=== PATIENT | female | born 1970 | race Caucasian/White ===

== ENCOUNTER 2024-01-02 07:14 | Day surgery (SDC) | payer OTHER, SELFPAY ==
[2023-12-31 13:45] VITALS: BMI 28.5
--- NOTE | 2023-12-31 15:29 | P.CONAN_ITS ---
Documented by User: Eneida Ewing NP 12/31/23 15:29 HPI - Anesthesia Eval Consult details Narrative: 53yo F for Colonoscopy [facility] Past Medical History Medical History IBS (irritable bowel syndrome) Insomnia Neuropathy Depression Surgical History Surgical History History of surgery on arm Social History Social History Patient Tobacco Use Status: Never used Tobacco Advance Directives: No Advance Directives Information Provided: Yes Advance Directives on File: No Meds Allergies Allergy/AdvReac Type Severity Reaction Status Date / Time No Known Allergies Allergy Unverified 05/08/22 11:24 Home Medications ?Medication ?Instructions ?Recorded ?Confirmed ?Last Taken ?Type clonidine HCl 0.1 mg tablet 0.6 mg PO BEDTIME 05/09/22 12/31/23 Unknown History gabapentin 300 mg capsule 600 mg PO TID 05/09/22 12/31/23 01/02/24 History venlafaxine 37.5 mg 37.5 mg PO DAILY 05/09/22 12/31/23 Unknown History capsule,extended release 24 hr (Effexor XR) cyclobenzaprine 10 mg tablet 10 mg PO TID PRN Muscle Spasm 12/31/23 12/31/23 Unknown History estradiol 0.025 mg/24 hr 1 patch topical 2XW 12/31/23 12/31/23 Unknown History semiweekly transdermal patch mirtazapine 30 mg tablet 45 mg PO BEDTIME 12/31/23 12/31/23 Unknown History Exam Height,Weight and Vital Signs: Height 5 ft 5 in Weight 77.564 kg Assessment and Plan Assessment Anesthesia Assessment: Chart Reviewed Documented by User: Silke Frias MD 01/02/24 08:19 [facility] Past Medical History Medical History IBS (irritable bowel syndrome) Insomnia Neuropathy Depression Surgical History Surgical History History of surgery on arm History of Problems with Anesthesia: No Social History Social History Patient Tobacco Use Status: Never used Tobacco Advance Directives: No Advance Directives Information Provided: Yes Advance Directives on File: No Meds Allergies Allergy/AdvReac Type Severity Reaction Status Date / Time No Known Allergies Allergy Unverified 05/08/22 11:24 Home Medications ?Medication ?Instructions ?Recorded ?Confirmed ?Last Taken ?Type clonidine HCl 0.1 mg tablet 0.6 mg PO BEDTIME 05/09/22 12/31/23 Unknown History gabapentin 300 mg capsule 600 mg PO TID 05/09/22 12/31/23 01/02/24 History venlafaxine 37.5 mg 37.5 mg PO DAILY 05/09/22 12/31/23 Unknown History capsule,extended release 24 hr (Effexor XR) cyclobenzaprine 10 mg tablet 10 mg PO TID PRN Muscle Spasm 12/31/23 12/31/23 Unknown History estradiol 0.025 mg/24 hr 1 patch topical 2XW 12/31/23 12/31/23 Unknown History semiweekly transdermal patch mirtazapine 30 mg tablet 45 mg PO BEDTIME 12/31/23 12/31/23 Unknown History Exam Airway Mallampati Class: II TM Dist: >3cm Neck ROM: Full Loose/Missing/Broken Teeth: No Heart: RRR Lungs: CTA Assessment and Plan Assessment Anesthesia Assessment: Anesthesia Plan Discussed Final Anesthetic Review History of Problems with Anesthesia: No NPO: Yes ASA Class: II Final Preanesthetic Review: Meds/Allgs Chart Reviewed, Consent Obtained/Reviewed and Anes Risks/Benef Reviewed Patient Risk: Low Procedure Risk: Low Anesthetic Plan Anesthetic Plan: MAC: Disposition: Standard PACU
[2024-01-02 07:28] VITALS: BMI 27.5
[2024-01-02 08:40] VITALS: BP 129/76; PULSE 72; RESP 18; TEMP 36.1; O2SAT 97
[2024-01-02] MEDS: Lactated Ringers 1,000 ML 100 ML IVCONT (08:43)
[2024-01-02 09:37] VITALS: BP 108/58; PULSE 71; RESP 18; TEMP 36.1; O2SAT 99
--- NOTE | 2024-01-02 09:40 | PM.OP ---
Brief Operative Note Date of Service: 01/02/24 Pre-op diagnosis: Screening Post-op diagnosis: other (Diverticulosis) Procedure: Colonoscopy to the cecum and TI with biopsies Surgeon: Ezequiel Herndon MD Anesthesia: MAC Was an Datast[employer] Consultant used for this Procedure?: No Estimated blood loss (mL): 2.0 Pathology: other (A. Terminal ileum B. Ascending colon C. Descending colon) Condition: stable Disposition: PACU
[2024-01-02 09:52] VITALS: BP 104/68; PULSE 79; RESP 18; TEMP 36.6; O2SAT 100
--- NOTE | 2024-01-02 09:57 | OP_ITS ---
DATE OF SERVICE: 01/02/2024 SURGEON: Ezequiel Herndon MD INDICATIONS: The patient presents for evaluation of colorectal cancer screening and family history of colon cancer, as well as diarrhea. Full consent obtained from her for this, including risks of bleeding and perforation. PREOPERATIVE DIAGNOSIS: POSTOPERATIVE DIAGNOSIS: PROCEDURE PERFORMED: Colonoscopy to the cecum and terminal ileum with biopsies. ESTIMATED BLOOD LOSS: COMPLICATIONS: ANESTHESIA: Monitored anesthesia care. ASSISTANTS: SPECIMENS: PREOPERATIVE DIAGNOSES: Colorectal cancer screening, family history of colon cancer, and diarrhea. POSTOPERATIVE DIAGNOSES: Colorectal cancer screening, family history of colon cancer, diarrhea, rule out microscopic colitis, sigmoid diverticulosis, and internal hemorrhoids. DESCRIPTION OF PROCEDURE: The patient was placed in the left lateral decubitus position. The digital rectal exam revealed no abnormalities. The Olympus video pediatric colonoscope was entered into the rectum and advanced easily to the cecum. Once in the cecum, I did identify normal-appearing cecal pouch with appendiceal orifice and a normal-appearing ileocecal valve. The terminal ileum was cannulated and appeared normal. Biopsies were obtained. The scope was withdrawn back in the colon. The entire cecum and ileocecal valve appeared normal. The scope was slowly withdrawn assessing all mucosal surfaces carefully. Preparation was excellent. I did not visualize any sign of polyps, colitis, or angiodysplasia. There was a mild amount of sigmoid diverticulosis. I did obtain random biopsies in the ascending and descending colon. In the rectum, scope was retroflexed visualizing internal hemorrhoids, but no other pathology. The rectal mucosa appeared normal. The scope was straightened and withdrawn from the patient. She tolerated the procedure well and was returned to the recovery area in stable condition. IMPRESSION: 1. Mild diverticulosis. 2. Internal hemorrhoids. 3. Rule out microscopic colitis. PLAN: The results of biopsy will be checked. I would recommend a repeat colonoscopy in 5 years for further screening given her family history of colon cancer in her father. She will otherwise see me on a p.r.n. basis. Ezequiel Herndon MD RMQuentin/MERLYN / [id number]
== END 2024-01-02 10:28 | disposition home or self-care (01) ==
PROVIDERS: PCP Nurse Practitioner Family; Visit Provider Internal Medicine
PROC: 0DJD8ZZ Inspection of Lower Intestinal Tract, Via Natural or Artificial Opening Endoscopic (ICD-10-PCS; CPT 45378; principal; 2024-01-02 08:30)
DX: Z12.11 Encounter for screening for malignant neoplasm of colon (principal); K52.9 Noninfective gastroenteritis and colitis, unspecified; K57.30 Diverticulosis of large intestine without perforation or abscess without bleeding; K64.8 Other hemorrhoids; Z80.0 Family history of malignant neoplasm of digestive organs
CPT/HCPCS: 45380; 88305; J2704